=== PATIENT | female | born 1965 | race Caucasian/White ===

== ENCOUNTER 2018-04-01 14:05 | Emergency (ER) | payer MEDICARE, OTHER ==
[~2018-04-01] VITALS: Ht 167.6 cm; Wt 61.2 kg
[~2018-04-01 14:05] MED LIST: PHEN100C4 PO
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
[2018-04-01] MEDS ORDERED: IV NS 0.9% 1,000 ML BAG IV ONE ×2 (14:30)
[2018-04-01 15:01] LABS: BASOPHILS % (AUTO) 1.1 % (0.0-2.0); EOSINOPHILS % (AUTO) 1.7 % (0.0-6.0); HEMATOCRIT 35 % (33-45); HEMOGLOBIN 11.9 g/dL (11.5-14.8); LYMPHOCYTES # (AUTO) 1.1 /CMM (0.8-4.8); LYMPHOCYTES % (AUTO) 37.1 % (20.0-44.0); MEAN CORPUSCULAR HEMOGLOBIN 30 PG (26.0-33.0); MEAN CORPUSCULAR HGB CONC 34 g/dl (31.0-36.0); MEAN CORPUSCULAR VOLUME 89 fL (82-100); MONOCYTES # (AUTO) 0.2 /CMM (0.1-1.30); NEUTROPHILS # (AUTO) 1.6 /CMM (1.8-8.9); NEUTROPHILS % (AUTO) 53.1 % (43.0-81.0); PLATELET COUNT (AUTO) 108 /CMM (150-450); RDW COEFFICIENT OF VARIATION 16.1 (11.5-15.0); RED BLOOD CELL COUNT(AUTO) 3.94 MIL/uL (4.0-5.2); WHITE BLOOD COUNT (AUTO) 2.9 K/uL (4.3-11.0)
[2018-04-01 15:11] LABS: CALCIUM, SERUM 7.9 mg/dL (8.5-10.1); CARBON DIOXIDE 30 mmol/L (21-32); CHLORIDE 107 mmol/L (98-107); CREATININE 0.7 mg/dL (0.6-1.3); GLUCOSE 72 mg/dL (74-106); POTASSIUM 3.9 mmol/L (3.5-5.1); SODIUM SERUM 138 mmol/L (136-145); UREA NITROGEN, BLOOD 10 mg/dL (7-18)
[2018-04-01 15:15] LABS: INR 1.07 (0.85-1.15)
[2018-04-01 15:17] LABS: ACETAMINOPHEN 5 ug/ml (10-30); ALANINE AMINOTRANSFERASE 13 U/L (12-78); ALCOHOL, BLOOD < 3 mg/dL (0-0); ALKALINE PHOSPHATASE 69 U/L (46-116); ASPARTATE AMINOTRANSFERASE 23 U/L (15-37); BILIRUBIN,DIRECT 0.1 mg/dL (0.0-0.2); BILIRUBIN,TOTAL 0.3 mg/dL (0.2-1.0); TOTAL PROTEIN, SERUM 5.6 g/dL (6.4-8.2)
[2018-04-01 15:19] LABS: TROPONIN I < 0.017 ng/mL (0.00-0.056)
[2018-04-01] MEDS ORDERED: DEXTROSE 50%-WATER 50 ML DISP.SYRIN IV ONE (15:30)
[2018-04-01] MEDS ORDERED: DEXTROSE 50%-WATER 50 ML DISP.SYRIN ONE (15:30)
[2018-04-01 15:49] LABS: BAND % (MANUAL) 2 % (0.0-5.0); EOSINOPHILS % (MANUAL) 4 % (0-4); LYMPHOCYTES % (MANUAL) 32 % (16-48); MONOCYTES % (MANUAL) 2 % (0-11.0); NEUTROPHILS % (MANUAL) 60 (42-76)
[2018-04-01 15:53] LABS: APPEARANCE,URINE Slightly Cloudy (CLEAR); BILIRUBIN,URINE Negative (NEGATIVE); BLOOD, URINE Small Ery/uL (NEGATIVE); COLOR,URINE Yellow (YELLOW); KETONES,URINE Negative (NEGATIVE); LEUKOCYTE ESTERASE ,URINE Moderate (NEGATIVE); NITRITE, URINE Positive (NEGATIVE); PH,URINE 6.5 (5.0-8.0); PROTEIN,URINE Negative (NEGATIVE); UGLUCOSE Negative (NEGATIVE); UROBILINOGEN,URINE 0.2 EU/dL (0.2)
[2018-04-01 16:03] LABS: BACTERIA,URINE Many /HPF (None Seen); SQUAMOUS EPITHELIAL CELL,UR Few /HPF (None Seen); WBC,URINE 21-50 /HPF (0-3)
[2018-04-01] MEDS ORDERED: CEFTRIAXONE 1 G VIAL IM ONE (16:30)
[2018-04-01] MEDS ORDERED: CEFTRIAXONE 1 G VIAL ONE (16:31)
[2018-04-01] MEDS ORDERED: LIDOCAINE /MPF 1% VIAL 5 ML VIAL ONE (16:37)
--- NOTE | 2018-04-01 19:19 | NUR ---
PT STABLE CONDITION. VSS. NEG DISTRESS. ENDORSED TO YANIV SUNSHINE
[2018-04-01 19:49] VITALS: BP 122/84
== END 2018-04-01 19:50 | disposition home or self-care (01) ==
LOC: ER 14:08
DX: G93.49 Other encephalopathy (principal); F19.10 Other psychoactive substance abuse, uncomplicated; N39.0 Urinary tract infection, site not specified; E16.2 Hypoglycemia, unspecified; Z60.2 Problems related to living alone; Z79.899 Other long term (current) drug therapy
CPT/HCPCS: 36415; 70450; 71045; 80048; 80076; 80305; 80329; 81001; 84484; 84703; 85025; 85730; 87077; 87086; 87186; 93005; 96361; 96372; 96374; 99285; A4606; G0480 ×2; J0696; J3490; J7030; 81000-TC; Z7610

== ENCOUNTER 2022-05-22 15:08 | Emergency (ER) | payer MEDICARE, OTHER ==
[~2022-05-22] VITALS: Ht 162.6 cm; Wt 49.9 kg
--- NOTE | 2022-05-22 15:32 | NUR ---
To ER bed 11, SUNI [id number] From Home "Roomate called she wasnt breathing Hx of Fentanyl OD Given Narcan 2mg IVP now awake", aaox3, breathing even and non labored, connected to monitor
--- NOTE | 2022-05-22 17:42 | NUR ---
[facility] [phone]
[2022-05-22] MEDS ORDERED: NALO1DIS2 IM (17:51)
--- NOTE | 2022-05-22 17:58 | NUR ---
[facility]OGER RICCI IS COMING
[2022-05-22 18:02] VITALS: BP 118/65
--- NOTE | 2022-05-22 18:51 | NUR ---
Patient discharged to home in stable condition. Written and verbal after care instructions given. Patient verbalizes understanding of instruction.
== END 2022-05-22 18:03 | disposition home or self-care (01) ==
LOC: ER 15:11
DX: T40.601A Poisoning by unspecified narcotics, accidental (unintentional), initial encounter (principal); Z60.2 Problems related to living alone; Z79.899 Other long term (current) drug therapy; Y92.89 Other specified places as the place of occurrence of the external cause